=== PATIENT | female | born 1970 | race Caucasian/White ===

== ENCOUNTER 2016-10-05 15:26 | Emergency (ER) | payer SELFPAY ==
[~2016-10-05] VITALS: Ht 167.6 cm; Wt 71.0 kg
[~2016-10-05 15:26] MED LIST: NECON1 TA1 PO
[2016-10-05] MEDS ORDERED: CEPHALEXIN500 MG PO (16:06)
[2016-10-05 16:23] VITALS: BP 168/70
== END 2016-10-05 16:24 | disposition home or self-care (01) | DRG 605 ==
LOC: ED 15:26
PROC: 0HCQXZZ Extirpation of Matter from Finger Nail, External Approach (ICD-10-PCS; principal; 2016-10-05)
DX: S60.453A Superficial foreign body of left middle finger, initial encounter (principal); W26.8XXA Contact with other sharp object(s), not elsewhere classified, initial encounter; W45.8XXA Other foreign body or object entering through skin, initial encounter; Y92.008 Other place in unspecified non-institutional (private) residence as the place of occurrence of the external cause

== ENCOUNTER 2017-06-09 09:51 | Emergency (ER) | payer SELFPAY ==
[~2017-06-09] VITALS: Ht 167.6 cm; Wt 74.0 kg
[~2017-06-09 09:51] MED LIST changes: +CEPHALEXIN500 MG PO
[2017-06-09 10:48] LABS: IMMATURE GRANULOCYTES 0.3 % (0.0-1.0); MEAN CORPUSCULAR HGB 31.7 pG CALC (26.0-32.0); MEAN CORPUSCULAR HGB CONC 33.9 g/L CALC (32.0-36.0); NEUT# 8.86 thou/uL (2.00-7.15); RED BLOOD COUNT 4.63 mill/uL (4.20-5.60); RED CELL DISTRI WIDTH 12.1 % (11.5-15.5); URINE BILIRUBIN - DIPSTICK NEGATIVE (NEGATIVE); URINE BLOOD DIPSTICK MODERATE (NEGATIVE); URINE COLOR YELLOW; URINE GLUCOSE - DIPSTICK NEGATIVE (NEGATIVE); URINE KETONE TRACE mg/dL (NEGATIVE); URINE LEUK ESTERASE NEGATIVE (NEGATIVE); URINE NITRITE - DIPSTICK NEGATIVE (Negative); URINE PROTEIN - DIPSTICK NEGATIVE (NEG-TRACE); URINE SPECIFIC GRAVITY >=1.030; URINE UROBILINOGEN - DIPSTICK 0.2 E.U./dL (0.2)
[2017-06-09 10:49] LABS: HEMATOCRIT 43.3 % (37.0-47.0); HEMOGLOBIN 14.7 g/dl (12.0-16.0); MEAN CELL VOLUME 93.5 fL CALC (80.0-100.0)
[2017-06-09 10:51] LABS: URINE CLARITY CLEAR
[2017-06-09 10:59] LABS: URINE SQUAMOUS EPITHELIAL CELL FEW EPI/hpf (0-FEW)
[2017-06-09 11:08] LABS: ANION GAP 16 (6-22 (CALC)); BILIRUBIN, TOTAL 0.5 mg/dL (0.0-1.4); BUN 7 mg/dL (7-17); BUN/CREATININE RATIO 9 (12-20 (CALC)); CARBON DIOXIDE 24 mmol/l (22-30); CHLORIDE 104 mmol/l (95-108); CREATININE 0.9 mg/dL (0.5-1.0); GFR > 60 ML/MIN (>=60 (CALC)); GFR FOR AFR.AMER. > 60 ML/MIN (>=60 (CALC)); LIPASE 97 u/l (23-300); POTASSIUM 3.9 mmol/l (3.5-5.1); SGOT/AST 20 u/l (14-36); SGPT/ALT 25 u/l (9-52); SODIUM 141 mmol/l (137-146)
[2017-06-09 11:09] LABS: ALBUMIN 4.3 g/dL (3.2-5.0); ALKALINE PHOSPHATASE 98 u/l (38-126); TOTAL PROTEIN 7.5 g/dL (6.3-8.2)
[2017-06-09 11:39] LABS: TSH, 3RD GENERATION 1.66 uIU/mL (0.47 - 4.68)
[2017-06-09] MEDS ORDERED: THYROID MED (11:48)
[2017-06-09] MEDS ORDERED: RANITIDINE 150150 MG PO (12:20)
[2017-06-09 12:48] VITALS: BP 161/73
== END 2017-06-09 13:08 | disposition home or self-care (01) | DRG 103 ==
LOC: ED 09:51
PROVIDERS: Family Medicine
DX: G44.209 Tension-type headache, unspecified, not intractable (principal); R07.89 Other chest pain; R10.13 Epigastric pain; F17.210 Nicotine dependence, cigarettes, uncomplicated
CPT/HCPCS: Q9967

== ENCOUNTER 2020-10-30 11:52 | Emergency (ER) | payer SELFPAY ==
[~2020-10-30 11:52] MED LIST changes: +RANITIDINE 150150 MG PO; +THYROID MED
[2020-10-30 13:35] VITALS: BP 138/93
== END 2020-10-30 13:35 | disposition home or self-care (01) | DRG 605 ==
LOC: ED 11:52
PROC: 0HQKXZZ Repair Right Lower Leg Skin, External Approach (ICD-10-PCS; principal; 2020-10-30)
DX: S81.011A Laceration without foreign body, right knee, initial encounter (principal); F17.200 Nicotine dependence, unspecified, uncomplicated; W26.8XXA Contact with other sharp object(s), not elsewhere classified, initial encounter